=== PATIENT | female | born 1965 | race Caucasian/White ===

== ENCOUNTER → 2020-09-18 07:34 | Outpatient (CLI) | payer OTHER, SELFPAY ==
--- NOTE | ~2020-09-18 | MM_ITS ---
EXAMINATION: MM screening karen BI w shukri HISTORY: Screening TECHNIQUE: Craniocaudal and mediolateral oblique 3-D tomosynthesis images were obtained and synthetic 2-D images were generated. CAD analysis was submitted and interpreted. COMPARISON: Comparison to multiple prior studies sequentially, with oldest reviewed study dated 01/29. BREAST PARENCHYMAL COMPOSITION: The breasts are heterogenously dense, which may obscure small masses. FINDINGS: There is no evidence of suspicious mass, calcification, or architectural distortion to sugg est malignancy in either breast. There has been no suspicious interval change. IMPRESSION: 1. No mammographic evidence of malignancy. 2. Recommend routine screening mammography in one year. BI-RADS Category 1: Negative Reviewed, dictated and finalized at location A.
== END ==
PROVIDERS: Visit Provider Obstetrics & Gynecology Gynecology
DX: Z12.31 Encounter for screening mammogram for malignant neoplasm of breast (principal)
CPT/HCPCS: 77063; 77067

== ENCOUNTER → 2020-10-27 14:23 | Outpatient (CLI) | payer OTHER, SELFPAY ==
--- NOTE | ~2020-10-27 | XR_ITS ---
EXAMINATION: XR chest 2V DATE: 10/27/2020 14:49 INDICATION: Pleurodynia. Right chest pain. Fall. TECHNIQUE: Frontal and lateral views of the chest were obtained. COMPARISON: None. FINDINGS: Calcified bilateral lung nodules and calcified hilar lymph nodes are consistent with old gr anulomatous disease. No pleural effusion or pneumothorax. The heart size is normal. IMPRESSION: 1. No acute cardiopulmonary disease. Reviewed, dictated and finalized at location A.
== END ==
PROVIDERS: PCP Internal Medicine; Visit Provider Clinical Nurse Specialist
DX: R07.81 Pleurodynia (principal); W19.XXXA Unspecified fall, initial encounter
CPT/HCPCS: 71046